=== PATIENT | male | born 1930 | race Caucasian/White ===

== ENCOUNTER 2017-08-16 09:35 | Emergency (ER) | payer OTHER ==
[2017-08-16 10:15] VITALS: BP 124/48
--- NOTE | 2017-08-16 10:22 | UC ---
Respiratory Complaint HPI - HPI Summary HPI Summary: 87 year old male with cough. COUGH, CHEST CONGESTION, FOR TWO DAYS. PT WORRIED ABOUT BRONCHITIS. HEAD CONGESTION, GREEN SPUTUM, SINUS CONGESTION. NO CHILLS OR FEVER. HEADACHE ON AND OFF. MILD BODY ACHES. has had bronchitis in the past and it feels that way at this time [ End ] - History of Current Complaint Chief Complaint: UCRespiratory Stated Complaint: COUGH/CONGESTION Time Seen by Provider: 08/16/17 10:20 Hx Obtained From: Patient Onset/Duration: Sudden Onset Timing: Constant Severity Initially: Mild Severity Currently: Moderate Character: Cough: Productive Alleviating Factors: Nothing Associated Signs And Symptoms: Positive: URI, Nasal Congestion, Sinus Discomfort - Allergies/Home Medications Allergies/Adverse Reactions: Allergies Allergy/AdvReac Type Severity Reaction Status Date / Time No Known Allergies Allergy Verified 08/16/17 09:53 Home Medications: Home Medications Amiodarone TAB* [Cordarone TAB*] 200 mg PO DAILY 08/16/17 [History Confirmed ] Apixaban* [Eliquis*] 5 mg PO BID 08/16/17 [History Confirmed 08/16/17] Atorvastatin* [Lipitor*] 10 mg PO DAILY 08/16/17 [History Confirmed 08/16/17] Cod Liver Oil 1 cap PO 08/16/17 [History] Coenzyme Q10 (Ubidecarenone) [Coq-10] 100 mg PO 08/16/17 [History] Flaxseed (Linseed) [Flaxseed Oil] 1 cap PO 08/16/17 [History] Furosemide TAB* [Lasix TAB*] 20 mg PO DAILY 08/16/17 [History Confirmed 08/16/17 ] [id number] C- [Glucosamine Chondroitin] 1 tab PO 08/16/17 [ History] Lisinopril TAB* [Prinivil TAB 10 MG*] 20 mg PO DAILY 08/16/17 [History Confirmed 08/16/17] Magnesium Citrate (mg Suppleme [Magnesium Citrate] 200 mg PO 08/16/17 [History] Methylcobalamin [B-12] 500 mcg PO 08/16/17 [History] Selenium [Selenimin-200] 200 mcg PO 08/16/17 [History] PMH/Surg Hx/FS Hx/Imm Hx Previously Healthy: Yes Cardiovascular History: Cardiac Disease, Hypertension, Atrial Fibrillation - Surgical History Surgical History: Yes Surgery Procedure, Year, and Place: CAROTID ENDARECTOMY -RIGHT,2015 - Family History Known Family History: Positive: None - Social History Occupation: Retired Lives: With Family Alcohol Use: Rare Substance Use Type: None Smoking Status (MU): Former Smoker When Did the Patient Quit Smoking/Using Tobacco: AGE 32 Review of Systems Constitutional: Chills, Fatigue ENT: Nasal Discharge, Sinus Congestion, Sinus Pain/Tenderness Respiratory: Cough Is Patient Immunocompromised?: No All Other Systems Reviewed And Are Negative: Yes Physical Exam Triage Information Reviewed: Yes Appearance: Well-Appearing, No Pain Distress, Well-Nourished Vital Signs: Initial Vital Signs Temp 98.4 F 08/16/17 10:04 Pulse 51 08/16/17 10:04 Resp 20 08/16/17 10:04 BP 124/48 08/16/17 10:04 Pulse Ox 97 08/16/17 10:04 Vital Signs Reviewed: Yes Eye Exam: Normal ENT Exam: Normal Dental Exam: Normal Neck exam: Normal Neck: Positive: 1 Respiratory Exam: Normal Cardiovascular Exam: Normal Musculoskeletal Exam: Normal Neurological Exam: Normal Psychological Exam: Normal Skin Exam: Normal UC Diagnostic Evaluation - Laboratory O2 Sat by Pulse Oximetry: 97 Respiratory Course/Dx - Differential Dx/Diagnosis Differential Diagnosis/HQI/PQRI: Bronchitis, Laryngitis, Lower Resp Infection Provider Diagnoses: Bronchitis Discharge - Discharge Plan Condition: Good Disposition: HOME Prescriptions: Amoxicillin/Clavulanate TAB* [Augmentin TAB 875*] 875 mg PO BID #20 tab Benzonatate [Benzonatate 200 MG] 200 mg PO TID #20 cap Patient Education Materials: Acute Bronchitis (ED) Referrals: Lopez Street MD [Primary Care Provider] - 4 Days
== END 2017-08-16 10:42 | disposition home or self-care (01) ==
LOC: UCCORT 09:35
DX: J40 Bronchitis, not specified as acute or chronic (principal); I10 Essential (primary) hypertension; Z79.899 Other long term (current) drug therapy; Z87.891 Personal history of nicotine dependence
CPT/HCPCS: 99202; G0463